=== PATIENT | female | born 1990 | race Two or more races ===

== ENCOUNTER 2021-09-17 11:34 | Emergency (ER) | payer SELFPAY ==
[~2021-09-17] VITALS: Ht 157.5 cm; Wt 55.8 kg
--- NOTE | 2021-09-17 14:38 | PHYS DOC ---
Past Medical History Past Medical History: No Pertinent History Past Surgical History: No Surgical History Smoking Status: Never Smoker Alcohol Use: Occasionally Drug Use: Marijuana General Adult EDM: Chief Complaint: LOWER EXT PAIN HPI: HPI: Patient is a 31-year-old female that presents today with bilateral leg pain. Patient is Serbian-speaking only and this HPI and the remaining assessment was done with interpretive services. Patient states that for the last month she has been experiencing muscle spasms in her legs she said is progressively gotten worse keeping her from working, she says it is hard to walk and hard to stand. She also states that she has had increased thirst and increased urination over the past month as well. Patient states this all started about 2 months ago when she was hit in the leg by a piece of equipment in [place] where she was working she said since that time her legs have always bothered her. Patient denies chest pain, shortness of air, fever, or cough. Patient does states she has increased urination. Review of Systems: Review of Systems: Constitutional: Denies fever or chills. [] Eyes: Denies change in visual acuity. [] HENT: Denies nasal congestion or sore throat. [] Respiratory: Denies cough or shortness of breath. [] Cardiovascular: Denies chest pain or edema. [] GI: Denies abdominal pain, nausea, vomiting, bloody stools or diarrhea. [] : Frequency in urination denies dysuria. [] Musculoskeletal: Bilateral leg pain denies back pain or joint pain. [] Integument: Denies rash. [] Neurologic: Denies headache, focal weakness or sensory changes. [] Endocrine: Denies polyuria or polydipsia. [] Lymphatic: Denies swollen glands. [] Psychiatric: Denies depression or anxiety. [] Heart Score: C/O Chest Pain: N/A Risk Factors: Risk Factors: DM, Current or recent (<one month) smoker, HTN, HLP, family history of CAD, obesity. Risk Scores: Score 0 - 3: 2.5% MACE over next 6 weeks - Discharge Home Score 4 - 6: 20.3% MACE over next 6 weeks - Admit for Clinical Observation Score 7 - 10: 72.7% MACE over next 6 weeks - Early Invasive Strategies Allergies: Allergies: Allergies Coded Allergies Type Severity Reaction Last Updated Verified No Known Drug Allergies 09/17/21 No Physical Exam: PE: Constitutional: Well developed, well nourished, mild distress, non-toxic appearance. [] HENT: Normocephalic, atraumatic, bilateral external ears normal, oropharynx moist, no oral exudates, nose normal. [] Eyes: PERRLA, EOMI, conjunctiva normal, no discharge. [] Neck: Normal range of motion, no tenderness, supple, no stridor. [] Cardiovascular:Heart rate regular rhythm, no murmur [] Lungs & Thorax: Bilateral breath sounds clear to auscultation [] Abdomen: Bowel sounds normal, soft, no tenderness, no masses, no pulsatile masses. [] Skin: Warm, dry, no erythema, no rash. [] Back: No tenderness, no CVA tenderness. [] Extremities: Bilateral legs visible Fasciculations noted in the calf and quadricep area, dorsalis pedis pulses 2+ with cap refill less than 2 seconds sensory intact, pain with palpation due to muscle spasms. Patient's gait is somewhat guarded due to the muscle spasms. Neurologic: Alert and oriented X 3, normal motor function, normal sensory function, no focal deficits noted. [] Psychologic: Affect normal, judgement normal, mood normal. [] Current Patient Data: Labs: Laboratory Tests Test 09/17/21 14:45 09/17/21 15:18 Urine Collection Type Unknown Urine Color Yellow Urine Clarity Clear Urine pH 6.5 Urine Specific [place] <=1.005 Urine Protein Negative mg/dL Urine Glucose (UA) Negative mg/dL Urine Ketones (Stick) Negative mg/dL Urine Blood Negative Urine Nitrite Negative Urine Bilirubin Negative Urine Urobilinogen Dipstick 0.2 mg/dL Urine Leukocyte Esterase Moderate Urine RBC 3-5 /HPF Urine WBC 11-20 /HPF Urine Squamous Epithelial Cells Mod /LPF Urine Bacteria 0 /HPF Urine Trichomonas Present White Blood Count 10.3 x10^3/uL Red Blood Count 4.76 x10^6/uL Hemoglobin 14.8 g/dL Hematocrit 41.9 % Mean Corpuscular Volume 88 fL Mean Corpuscular Hemoglobin 31 pg Mean Corpuscular Hemoglobin Concent 35 g/dL Red Cell Distribution Width 12.8 % Platelet Count 397 x10^3/uL Neutrophils (%) (Auto) 77 % Lymphocytes (%) (Auto) 17 % Monocytes (%) (Auto) 6 % Eosinophils (%) (Auto) 0 % Basophils (%) (Auto) 1 % Neutrophils # (Auto) 7.9 x10^3/uL Lymphocytes # (Auto) 1.7 x10^3/uL Monocytes # (Auto) 0.6 x10^3/uL Eosinophils # (Auto) 0.0 x10^3/uL Basophils # (Auto) 0.1 x10^3/uL Urine Test Negative Sodium Level 133 mmol/L Potassium Level 3.6 mmol/L Chloride Level 100 mmol/L Carbon Dioxide Level 30 mmol/L Anion Gap 3 Blood Urea Nitrogen 7 mg/dL Creatinine 0.5 mg/dL Estimated GFR (Cockcroft-Gault) 143.9 BUN/Creatinine Ratio 14 Glucose Level 126 mg/dL Lactic Acid Level 2.1 mmol/L Calcium Level 9.1 mg/dL Phosphorus Level 4.1 mg/dL Magnesium Level 2.3 mg/dL Total Bilirubin 0.6 mg/dL Aspartate Amino Transf (AST/SGOT) 11 U/L Alanine Aminotransferase (ALT/SGPT) 19 U/L Alkaline Phosphatase 42 U/L Creatine Kinase 161 U/L Total Protein 8.3 g/dL Albumin 4.0 g/dL Albumin/Globulin Ratio 0.9 Urine Opiates Screen Neg Urine Methadone Screen Neg Urine Barbiturates Neg Urine Phencyclidine Screen Neg Urine Amphetamine/Methamphetamine Neg Urine Benzodiazepines Screen Neg Urine Cocaine Screen Neg Urine Cannabinoids Screen Neg Urine Ethyl Alcohol Neg Current Medications Medications (Trade) Dose Ordered Sig/Pranay Route PRN Reason Start Time Stop Time Status Last Admin Dose Admin Sodium Chloride 1,000 ml @ 999 mls/hr 1X ONCE IV 09/17/21 16:00 09/17/21 17:00 Ketorolac Tromethamine (Toradol 15mg Vial) 15 mg 1X ONCE IVP 09/17/21 16:30 09/17/21 16:31 DC Vital Signs: Vital Signs Date Time Temp Pulse Resp B/P (MAP) Pulse Ox O2 Delivery O2 Flow Rate FiO2 09/17/21 16:35 69 18 126/63 (84) 99 Room Air 09/17/21 16:15 82 20 120/59 (79) 98 Room Air 09/17/21 15:45 72 17 121/65 (83) 99 Room Air 09/17/21 14:45 92 22 130/75 (93) 99 Room Air 09/17/21 14:25 98.4 70 22 117/74 (88) 100 Room Air 98.4 Vital Signs Date Time Temp Pulse Resp B/P (MAP) Pulse Ox O2 Delivery O2 Flow Rate FiO2 09/17/21 14:25 98.4 70 22 117/74 (88) 100 Room Air 98.4 EKG: EKG: EKG done at [address] Roper at 1526 sinus rhythm with no abnormalities at a rate of 79 with a NH interval of 170 ms with a QTC of 384 ms no STEMI [] Radiology/Procedures: Radiology/Procedures: [] Course & Med Decision Making: Course & Med Decision Making Pertinent Labs and Imaging studies reviewed. (See chart for details) [address] Roper regaridng this patient's care and she advised not to get ESR, CRP and troponin at this time. She did advise that patient have Magnesium, Phos and CK done which were ordered. Dr Roper informed that UA was negative still awaiting test so that toradol can be given. 1625 again with the use of an household personal assistant did review laboratory results with patient, patient again denied use of marijuana states she does drink on the weekends socially but does not use alcohol on a daily basis. Patient also denies vaginal discharge at this time. Patient continues to state that she just has leg pain and continual weakness and inability to sleep. Patient informed that at this time nothing acute is showing on her laboratory results except for her urinary tract infection and a trichomonas infection. Patient will be treated for those with prescriptive medications, patient has been given a list of clinics to follow-up with for further management of this leg pain for follow- up on an outpatient basis with the specialist. Patient verbalized understanding of this and is agreeable with the plan of care of receiving a liter of IV fluids, IV Toradol for pain, a prescription for the urinary tract infection and trichomonas. We will send urine for GC and chlamydia. Ana María Disclaimer: Ana María Disclaimer: This electronic medical record was generated, in whole or in part, using a voice recognition dictation system. Departure Departure Impression: Primary Impression: Myalgia Additional Impressions: UTI (urinary tract infection) Qualified Codes: N30.00 - Acute cystitis without hematuria Trichomonal vaginitis Disposition: HOME / SELF CARE / HOMELESS Condition: STABLE Referrals: ELOISA TRINIDAD M.D. (PCP) Patient Instructions: Myalgia, Adult, Trichomoniasis, Urinary Tract Infection Additional Instructions: INSTRUCCIONES GENERALES DE DESMOND DEL DEPARTAMENTO DE EMERGENCIA Sheila por venir hoy al Departamento de Emergencias (ED) de [facility] y confiarnos ahumada atencin. Confiamos en que haya tenido lalito experiencia positiva en nuestro Departamento de Emergencias. Si desea hablar con la gerencia del departamento, puede llamar al director al . GOPI INSTRUCCIONES DE SEGUIMIENTO SON LAS SIGUIENTES: 1. María un seguimiento con ahumada mdico de atencin primaria. Si no tiene un mdico de cabecera, solicite lalito lista de recursos de mdicos o clnicas que puedan ayudarlo con la atencin de seguimiento. 2. El proveedor de emergencia lopez interpretado gopi estudios de imgenes, si se ordenaron. El especialista en imgenes de radiologa tambin los josseline. Si hay un cambio en los hallazgos, se le notificar en 48 horas cuando sea posible. 3. Si se lopez realizado lalito prueba de laboratorio o un cultivo, se revisarn gopi resultados y se le notificar si necesita un cambio en el tratamiento. 4. Siga las instrucciones verbalizadas y consulte las copias impresas si es necesario. INSTRUCCIONES E INFORMACIN ADICIONALES: 1. Ahumada atencin hoy lopez sido supervisada por un mdico especialmente capacitado en atencin de emergencia. Muchos problemas requieren ms de lalito evaluacin para un diagnstico y tratamiento completos. Le recomendamos que programe ahumada jennifer de seguimiento segn lo recomendado para garantizar el tratamiento completo de ahumada enfermedad o lesin. Si no puede obtener atencin de seguimiento y contina teniendo un problema, o si ahumada condicin empeora, le recomendamos que regrese al servicio de urgencias. 2. No podemos determinar de manera martinez ahumada condicin por telfono ni podemos osmin consejos mdicos slidos por telfono. Por estas razones de seguridad, si llama para pedir consejo mdico, le pediremos que vaya al servicio de urgencias para lalito evaluacin adicional. 3. Si tiene alguna pregunta sobre estas instrucciones de desmond, llame al ED al . INFORMACIN DE SEGURIDAD: En inters de la seguridad, el bienestar y la prevencin de lesiones; le recomendamos que use ahumada cinturn de seguridad, si fuma; bastante fumador, y alentamos a la nay a usar un christopher protector para andar en bicicleta y otros eventos deportivos que presenten un mayor riesgo de lesiones en la maxine. SI GOPI SNTOMAS EMPEORAN O SE DESARROLLAN NUEVOS SNTOMAS, O SI TIENE PREOCUPACIONES SOBRE AHUMADA CONDICIN; O SI AHUMADA CONDICIN EMPEORA MIENTRAS ESPERA AHUMADA JENNIFER DE SEGUIMIENTO; PNGASE EN CONTACTO CON AHUMADA MDICO DE ATENCIN PRIMARIA, EL MDICO CUYO NOMBRE Y NMERO LE DIERON, O REGRESE AL ED INMEDIATAMENTE. Marcobid take one tablet twice daily for 7 days Metronidazole take one tablet twice daily for 7 days Scripts Metronidazole (METRONIDAZOLE) 500 Mg Tablet 1 TAB PO BID for 7 Days, #14 TAB 0 Refills Prov: INES CEDENO PACKING LINE WORKER 09/17/21 Nitrofurantoin Monohyd/M-Cryst (MACROBID 100 MG CAPSULE) 100 Mg Capsule 1 CAP PO BID for 7 Days, #14 CAP 0 Refills Prov: INES CEDENO PACKING LINE WORKER 09/17/21 INES CEDENO APRN Sep 17, 2021 14:38
[2021-09-17 14:55] LABS: BILIRUBIN,URINE NEGATIVE (NEG); CLARITY,URINE CLEAR; COLOR,URINE YELLOW; NITRITE,URINE NEGATIVE (NEG); PH,URINE 6.5 (<5.0-8.0); PROTEIN,URINE NEGATIVE (NEG-TRACE); UROBILINOGEN,URINE 0.2 mg/dL (0.2 mg/dL)
[2021-09-17 15:05] LABS: BACTERIA,URINE 0 /HPF (0-FEW); TRICHOMONAS,URINE PRESENT
[2021-09-17 15:27] LABS: BASO # 0.1 x10^3/uL (0.0-0.2); BASO % 1 % (0-3); EOS % 0 % (0-3); HEMATOCRIT 41.9 % (36.0-47.0); HEMOGLOBIN 14.8 g/dL (12.0-15.5); LYMPH # 1.7 x10^3/uL (1.0-4.8); LYMPH % 17 % (24-48); MEAN CORPUSCULAR HEMOGLOBIN 31 pg (25-35); MEAN CORPUSCULAR HGB CONC 35 g/dL (31-37); MEAN CORPUSCULAR VOLUME 88 fL (79-100); MONO # 0.6 x10^3/uL (0.0-1.1); MONO % 6 % (0-9); NEUT # 7.9 x10^3/uL (1.8-7.7); NEUT % 77 % (31-73); PLATELET COUNT 397 x10^3/uL (140-400); RED BLOOD COUNT 4.76 x10^6/uL (3.50-5.40); RED CELL DISTRIBUTION WIDTH 12.8 % (11.5-14.5); WHITE BLOOD COUNT 10.3 x10^3/uL (4.0-11.0)
[2021-09-17 15:40] LABS: CALCIUM 9.1 mg/dL (8.5-10.1); CREATININE 0.5 mg/dL (0.6-1.0); GFR 143.9; POTASSIUM 3.6 mmol/L (3.5-5.1)
--- NOTE | 2021-09-17 15:41 | EKG ---
[facility] [address] [place] [address] Test Date: 2021-09-17 Test Time: 15:23:53 Pat Name: DEANNA ETIENNE Department: Room: Gender: F Ppa Teacher: : 1990 Requested By: INES CEDENO Order Number: [id number] Reading MD: Vin Bateman Measurements Intervals [place] Rate: 79 P: 47 NC: 170 QRS: 76 QRSD: 88 T: 33 QT: 334 QTc: 384 Interpretive Statements SINUS RHYTHM NON SPECIFIC T WAVE CHANGES Electronically Signed On 09-19-2021 12:52:06 ACTIVITY THERAPY TEACHER by Vin Bateman
[2021-09-17 15:46] LABS: ALBUMIN/GLOBULIN RATIO 0.9 (1.0-1.7); TOTAL BILIRUBIN 0.6 mg/dL (0.2-1.0); TOTAL PROTEIN 8.3 g/dL (6.4-8.2)
[2021-09-17 15:54] LABS: AMPHETAMINE/METHAMPHETAMINE NEG (NEG); BARBITURATES NEG (NEG); BENZODIAZEPINES NEG (NEG); CANNABINOIDS NEG (NEG); COCAINE NEG (NEG); METHADONE NEG (NEG); OPIATES NEG (NEG); PHENCYCLIDINE NEG (NEG)
[2021-09-17 15:55] LABS: MAGNESIUM 2.3 mg/dL (1.8-2.4); PHOSPHORUS 4.1 mg/dL (2.6-4.7)
[2021-09-17 15:58] LABS: U PREG PATIENT NEGATIVE (NEG)
[2021-09-17] MEDS ORDERED: IV NORMAL SALINE 1000ML BAG 1,000 ML IV ONE (16:00)
[2021-09-17] MEDS ORDERED: KETOROLAC 15 MG/ML VIAL. IVP ONE (16:30)
[2021-09-17] MEDS ORDERED: METR-34 PO (16:42)
[2021-09-17] MEDS ORDERED: NITR100C62 PO (16:42)
[2021-09-17 17:45] VITALS: BP 123/62
== END 2021-09-17 17:48 | disposition home or self-care (01) ==
LOC: ER 11:34
DX: N30.00 Acute cystitis without hematuria (principal); A59.01 Trichomonal vulvovaginitis; M79.10 Myalgia, unspecified site; M79.604 Pain in right leg; M79.605 Pain in left leg
CPT/HCPCS: 36415; 80053; 80307; 81001; 81025; 82550; 83605; 83735; 84100; 85025; 87086; 87491; 87591; 93005; 96361; 96374; 99285; J1885; J7030